=== PATIENT | female | born 1965 | race Hispanic/Latino ===

== ENCOUNTER 2018-09-03 13:12 | Emergency (ER) | payer SELFPAY ==
[2018-09-03] MEDS ORDERED: METOPROLOL TARTRATE 5 MG/5 ML INJ IV ONE (13:43)
[2018-09-03 14:01] LABS: Absolute Lymphocytes (CBC) 3.3 K/uL (0.7-4.9); Absolute Monocytes 0.4 K/uL (0.1-1.3); Absolute Neutrophil 3.5 K/uL (1.8-8.0); Basophils % 0.9 % (0-1.3); Eosinophils % 1.6 % (0-4.4); Lymphocytes % 44.6 % (15.3-44.8); MPV 9.7 fL (7.6-11.3); Monocytes % 5.9 % (3.3-12.3); RBC Red Blood Cell Count 5.13 M/uL (3.86-4.86)
[2018-09-03] MEDS ORDERED: FENTANYL CITR 100 MCG/2 ML ONE (14:03)
--- NOTE | 2018-09-03 14:03 | RAD REPORT ---
EXAM DESCRIPTION: RAD - Chest Single View - 09/03/2018 1:57 pm CLINICAL HISTORY: MALAISE Chest pain. COMPARISON: <Comparisons> FINDINGS: Portable technique limits examination quality. The lungs are grossly clear. The heart is normal in size. No displaced fractures. IMPRESSION: No acute intrathoracic process suspected.
[2018-09-03 14:09] LABS: Protime INR 1.01
[2018-09-03] MEDS ORDERED: METOPROLOL TAR 50 MG TAB ONE (14:17)
[2018-09-03] MEDS ORDERED: IPRATROPIUM BROM 0.5MG/2.5ML ONE (14:19)
[2018-09-03] MEDS ORDERED: ALBUTEROL 2.5 MG/3 ML NEB SOL ONE (14:19)
[2018-09-03 14:49] LABS: ALT/SGPT 45 U/L (12-78); AST/SGOT 35 U/L (15-37); Albumin 4.2 g/dL (3.4-5.0); Alkaline Phosphatase 66 U/L (45-117); BUN Blood Urea Nitrogen 15 mg/dL (7-18); Bicarbonate 28 mmol/L (21-32); Bilirubin Direct < 0.1 mg/dL (0-0.2); Bilirubin Total 0.2 mg/dL (0.2-1.0); Glucose Level 152 mg/dL (74-106); Magnesium 2.1 mg/dL (1.8-2.4); NT PRO-BNP 40 pg/mL (<125); Potassium 3.1 mmol/L (3.5-5.1); Protein, Total 8.1 g/dL (6.4-8.2); Sodium Level 141 mmol/L (136-145); Troponin (Emerg Dept Use Only) < 0.02 ng/mL (0.0-0.045)
--- NOTE | 2018-09-03 15:34 | RAD REPORT ---
EXAM DESCRIPTION: CT - Angio Aorta For Dissection - 09/03/2018 3:16 pm CLINICAL HISTORY: Chest pain radiating to the back. CHEST PAIN COMPARISON: Chest Single View dated 09/03/2018 TECHNIQUE: CT angiography of the aorta was performed with MIPs. All CT scans are performed using dose optimization technique as appropriate and may include automated exposure control or mA/KV adjustment according to patient size. FINDINGS: A left aortic arch is present with normal branching pattern of the great vessels.No acute aortic finding is seen such as aneurysm, penetrating ulcer or dissection. The celiac axis, SMA, GABY and renal arteries are widely patent. No evidence of pulmonary embolism. The lungs are clear. Cholecystectomy clips. The liver demonstrates no focal mass or biliary dilatation.The spleen, pancreas, adrenal glands and k idneys are within normal limits for arterial phase imaging. No bowel obstruction, free fluid or abscess.Normal appendix.No pathologic enlarged lymphadenopathy id entified.Moderate fat containing umbilical hernia. Diverticulosis is present involving the sigmoid co jesus without diverticulitis. No fracture or worrisome bone lesion seen. IMPRESSION: No acute aortic finding is demonstrated.
[2018-09-03] MEDS ORDERED: LORazepam 2 MG/ML VIAL ONE (15:36)
--- NOTE | 2018-09-03 16:02 | ER ---
Nurse's Notes [facility] Name: Sheri Galvez Age: 52 yrs Sex: Female : 1965 Arrival Date: 09/03/2018 Time: 13:13 Bed 6 Private MD: Diagnosis: Tachycardia, unspecified;Essential (primary) hypertension Presentation: 09/03 13:23 Presenting complaint: Patient states: L sided chest pain that began approx 15 min ADJUTANT GENERAL, ph radiates to L jaw, also reports SOB, and numbness o gustabo hands and feet. Transition of care: patient was not received from another setting of care. Onset of symptoms was September 03, 2018. Risk Assessment: Do you want to hurt yourself or someone else? Patient reports no desire to harm self or others. Initial Sepsis Screen: Does the patient meet any 2 criteria? No. Patient's initial sepsis screen is negative. Does the patient have a suspected source of infection? No. Patient's initial sepsis screen is negative. Care prior to arrival: None. 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 - Social history:: Smoking status: Patient/guardian denies using tobacco. - Ebola Screening: : No symptoms or risks identified at this time. Screenin:35 Abuse screen: Denies threats or abuse. Nutritional screening: No deficits noted. la1 Tuberculosis screening: No symptoms or risk factors identified. Fall Risk None identified. Assessment: 13:22 General: Appears distressed, Behavior is cooperative, anxious, crying. Pain: Complains hb of pain in chest upper back Pain currently is 10 out of 10 on a pain scale. Pain began suddenly, 1 hour ago. Neuro: Level of Consciousness is awake, alert, obeys commands, Oriented to person, place, time, situation. Cardiovascular: Heart tones S1 S2 present Capillary refill < 3 seconds Patient's skin is warm and dry. Rhythm is tachy 160s. Respiratory: Airway is patent Respiratory effort is even, unlabored, Respiratory pattern is regular, symmetrical, Breath sounds are clear bilaterally. GI: No signs and/or symptoms were reported involving the gastrointestinal system. : No signs and/or symptoms were reported regarding the genitourinary system. EENT: No signs and/or symptoms were reported regarding the EENT system. Derm: Skin is intact, is healthy with good turgor, Skin is pink, warm \T\ dry. Musculoskeletal: No signs and/or symptoms reported regarding the musculoskeletal system. 13:22 Reassessment: Dr. Cedeno at bedside. hb 13:46 Reassessment: Pt c/o chest pain that radiates to upper mid/upper back 01/25, HR hb 100-110, denies SOB. Dr. Cedeno notified, fentanyl administered as ordered. Family at bedside. 14:13 Reassessment: Pt c/o SOB, coughing, SPO2 100% on RA, says she is due to take her hb albuterol inhaler but does not have it with her. Dr. Cedeno notified, A\T\A neb administered as ordered. 15:00 Reassessment: Patient appears in no apparent distress at this time. Patient and/or hb family updated on plan of care and expected duration. Pain level reassessed. Patient is alert, oriented x 3, equal unlabored respirations, skin warm/dry/pink. 15:02 Reassessment: Pt to CT. hb 15:25 Reassessment: Pt returned from CT, c/o SOB and severe anxiety. Dr. Cedeno notified, hb Ativan administered as ordered. Family remains at bedside. 16:00 Reassessment: Patient appears in no apparent distress at this time. Patient denies pain hb at this time. Patient states feeling better. Patient states symptoms have improved. Vital Signs: 13:28 BP 147 / 124; Pulse 157; Resp 26; Pulse Ox 100% on R/A; Weight 61.23 kg; Height 5 ft. ph 11 in. (180.34 cm); Pain 10/10; 13:34 BP 127 / 106; Pulse 115; Resp 19; Pulse Ox 98% on R/A; la1 13:45 BP 139 / 99; Pulse 112; Resp 20; Pulse Ox 100% on R/A; Pain 10/10; hb 14:00 BP 135 / 102; Pulse 104; Resp 17; Pulse Ox 97% on R/A; Pain 8/10; hb 15:00 BP 121 / 90; Pulse 95; Resp 20; Pulse Ox 100% on R/A; hb 16:00 BP 115 / 87; Pulse 105; Resp 18; Pulse Ox 96% on R/A; Pain 5/10; hb 13:28 Body Mass Index 18.83 (61.23 kg, 180.34 cm) ph ED Course: 13:13 Patient arrived in ED. tw3 13:26 Triage completed. ph 13:28 Arm band placed on. ph 13:34 Patient has correct armband on for positive identification. Placed in gown. Bed in low la1 position. Call light in reach. Side rails up X 1. monitor and storage bin tender on. Pulse ox on. NIBP on. 13:34 Inserted saline lock: 18 gauge in left antecubital area, using aseptic technique. Blood la1 collected. 13:35 EKG done, by ED staff, reviewed by Vern Cedeno MD. Patient maintains SpO2 saturation la1 greater than 95% on room air. 13:36 Soha Sotelo, ROBERTO CARLOS is Primary Nurse. hb 13:36 Vern Cedeno MD is Attending Physician. gs 13:57 XRAY Chest (1 view) In Process Unspecified. EDMS 14:34 Radiology exam delayed due to lab results not completed at this time. (BUN/Creatinine). eh 14:[address] eh 15:14 CT completed. Patient tolerated procedure well. Patient moved back from CT. bq 15:16 CT Aorta for Dissection In Process Unspecified. EDMS 16:01 Eliud Juárez MD is Referral Physician. gs 16:25 No provider procedures requiring assistance completed. IV discontinued, intact, hb bleeding controlled, No redness/swelling at site. Pressure dressing applied. Administered Medications: 13:34 Drug: Lopressor 5 mg Route: IVP; Site: left antecubital; la1 13:55 Follow up: Response: No adverse reaction hb 13:55 Drug: fentaNYL (PF) 50 mcg Route: IVP; Site: left antecubital; hb 14:30 Follow up: Response: No adverse reaction hb 14:13 Drug: Metoprolol TARTRATE (Lopressor) 50 mg Route: PO; hb 15:00 Follow up: Response: No adverse reaction hb 14:13 Drug: Albuterol - atroVENT (3:1) (2.5 mg - 0.5 mg) 3 ml Route: Nebulizer; hb 15:15 Follow up: Response: No adverse reaction hb 15:25 Drug: Ativan 0.5 mg Route: IVP; Site: left antecubital; hb 16:00 Follow up: Response: No adverse reaction hb Outcome: 16:02 Discharge ordered by . fransisco 16:25 Discharged to home ambulatory, with family. hb 16:25 Condition: stable 16:25 Discharge instructions given to patient, Instructed on discharge instructions, follow up and referral plans. medication usage, Demonstrated understanding of instructions, follow-up care, medications. 16:27 Patient left the ED. hb Signatures: Dispatcher [employer] EDMS Gilmar Queen Betty bq Attema, Lee RN RN la1 Yani Lopes RN RN Soha Sotelo RN RN Bart, Ramona tw3 Vern Cedeno MD MD Corrections: (The following items were deleted from the chart) 13:56 12:45 BP 139 / 99; Pulse 112bpm; Resp 20bpm; Pulse Ox 100% RA; Pain 10/10; hb hb 13:59 13:31 Reassessment: Dr. Cedeno at bedside hb hb
--- NOTE | 2018-09-03 16:02 | EDPHYS ---
Physician Documentation [facility] Name: Sheri Galvez Age: 52 yrs Sex: Female : 1965 Arrival Date: 09/03/2018 Time: 13:13 Bed 6 Private MD: ED Physician Vern Cedeno HPI: 09/03 15:49 This 52 yrs old Female presents to ER via Ambulatory with complaints of High gs Blood Pressure. 15:49 Onset: The symptoms/episode began/occurred suddenly, just prior to arrival. Modifying gs factors: The symptoms are aggravated by activity. Associated signs and symptoms: Pertinent positives: chest pain, palpitations. Severity of symptoms: At its worst the blood pressure was moderate, in the emergency department the blood pressure is unchanged. The patient has experienced similar episodes in the past, a few times. 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 - Social history:: Smoking status: Patient/guardian denies using tobacco. - Ebola Screening: : No symptoms or risks identified at this time. ROS: 15:49 All other systems are negative. gs Exam: 15:49 Head/Face: Normocephalic, atraumatic. Eyes: Pupils equal round and reactive to light, gs extra-ocular motions intact. Lids and lashes normal. Conjunctiva and sclera are non-icteric and not injected. Cornea within normal limits. Periorbital areas with no swelling, redness, or edema. ENT: Nares patent. No nasal discharge, no septal abnormalities noted. Tympanic membranes are normal and external auditory canals are clear. Oropharynx with no redness, swelling, or masses, exudates, or evidence of obstruction, uvula midline. Mucous membranes moist. Neck: Trachea midline, no thyromegaly or masses palpated, and no cervical lymphadenopathy. Supple, full range of motion without nuchal rigidity, or vertebral point tenderness. No Meningismus. Chest/axilla: Normal chest wall appearance and motion. Nontender with no deformity. No lesions are appreciated. 15:49 Respiratory: Lungs have equal breath sounds bilaterally, clear to auscultation and percussion. No rales, rhonchi or wheezes noted. No increased work of breathing, no retractions or nasal flaring. Abdomen/GI: Soft, non-tender, with normal bowel sounds. No distension or tympany. No guarding or rebound. No evidence of tenderness throughout. Back: No spinal tenderness. No costovertebral tenderness. Full range of motion. Skin: Warm, dry with normal turgor. Normal color with no rashes, no lesions, and no evidence of cellulitis. MS/ Extremity: Pulses equal, no cyanosis. Neurovascular intact. Full, normal range of motion. Neuro: Awake and alert, GCS 15, oriented to person, place, time, and situation. Cranial nerves II-XII grossly intact. Motor strength 5/5 in all extremities. Sensory grossly intact. Cerebellar exam normal. Normal gait. 15:49 Constitutional: The patient appears alert, awake, in obvious distress, severely distressed. 15:49 Cardiovascular: Rate: tachycardic, Rhythm: regular, Pulses: no pulse deficits are appreciated, Heart sounds: normal, Edema: is not appreciated. 15:49 ECG was reviewed by the Attending Physician. Vital Signs: 13:28 BP 147 / 124; Pulse 157; Resp 26; Pulse Ox 100% on R/A; Weight 61.23 kg; Height 5 ft. ph 11 in. (180.34 cm); Pain 10/10; 13:34 BP 127 / 106; Pulse 115; Resp 19; Pulse Ox 98% on R/A; la1 13:45 BP 139 / 99; Pulse 112; Resp 20; Pulse Ox 100% on R/A; Pain 10/10; hb 14:00 BP 135 / 102; Pulse 104; Resp 17; Pulse Ox 97% on R/A; Pain 8/10; hb 15:00 BP 121 / 90; Pulse 95; Resp 20; Pulse Ox 100% on R/A; hb 16:00 BP 115 / 87; Pulse 105; Resp 18; Pulse Ox 96% on R/A; Pain 5/10; hb 13:28 Body Mass Index 18.83 (61.23 kg, 180.34 cm) ph MDM: 13:36 Patient medically screened. gs 15:49 Differential diagnosis: hypertensive crisis, arrythmia, svt, aflutter. Data reviewed: vital signs, nurses notes, lab test result(s), EKG, radiologic studies. Counseling: I had a detailed discussion with the patient and/or guardian regarding: the historical points, exam findings, and any diagnostic results supporting the discharge/admit diagnosis, lab results, radiology results, the need for outpatient follow up. Counseling: I had a detailed discussion with the patient and/or guardian regarding: stop phenteramine. Response to treatment: the patient's symptoms have resolved after treatment, and as a result, I will discharge patient. 09/03 13:37 Order name: Basic Metabolic Panel 09/03 13:37 Order name: CBC with Diff 09/03 13:37 Order name: LFT's; Complete Time: 15:19 09/03 13:37 Order name: Magnesium; Complete Time: 15: 09/03 13:37 Order name: NT PRO-BNP; Complete Time: 15: 09/03 13:37 Order name: PT-INR; Complete Time: 15: 09/03 13:37 Order name: Troponin (emerg Dept Use Only); Complete Time: 15:19 09/03 13:37 Order name: XRAY Chest (1 view); Complete Time: 15: 09/03 13:38 Order name: Basic Metabolic Panel; Complete Time: 15:19 EDMN 09/03 13:38 Order name: CBC with Automated Diff; Complete Time: 15:19 [facility] 09/03 14:03 Order name: CT Aorta for Dissection; Complete Time: 15:45 09/03 14:32 Order name: TSH; Complete Time: 16:04 09/03 15:19 Order name: Urine Drug Screen 09/03 16:00 Order name: Urine Dipstick--Ancillary (enter results) 09/03 13:37 Order name: EKG; Complete Time: 13:38 09/03 13:37 Order name: Cardiac monitoring; Complete Time: 13:38 09/03 13:37 Order name: EKG - Nurse/Tech; Complete Time: 13:38 09/03 13:37 Order name: IV Saline Lock; Complete Time: 13:39 09/03 13:37 Order name: Labs collected and sent; Complete Time: 13:43 09/03 13:37 Order name: O2 Per Protocol; Complete Time: 13:39 09/03 13:37 Order name: O2 Sat Monitoring; Complete Time: 13:39 09/03 13:37 Order name: EKG - Nurse/Tech; Complete Time: 13:55 gs EC:49 Rate is 145 beats/min. Rhythm is regular. HI interval is normal. QRS interval is gs normal. QT interval is normal. Clinical impression: stachy ns st changes, on repeat nl rate no st changes. Interpreted by me. Administered Medications: 13:34 Drug: Lopressor 5 mg Route: IVP; Site: left antecubital; la1 13:55 Follow up: Response: No adverse reaction hb 13:55 Drug: fentaNYL (PF) 50 mcg Route: IVP; Site: left antecubital; hb 14:30 Follow up: Response: No adverse reaction hb 14:13 Drug: Metoprolol TARTRATE (Lopressor) 50 mg Route: PO; hb 15:00 Follow up: Response: No adverse reaction hb 14:13 Drug: Albuterol - atroVENT (3:1) (2.5 mg - 0.5 mg) 3 ml Route: Nebulizer; hb 15:15 Follow up: Response: No adverse reaction hb 15:25 Drug: Ativan 0.5 mg Route: IVP; Site: left antecubital; hb 16:00 Follow up: Response: No adverse reaction hb Disposition: 09/03/18 16:02 Discharged to Home. Impression: Tachycardia, unspecified, Essential (primary) hypertension. - Condition is Stable. - Discharge Instructions: Holter Monitoring, Hypertension, Sinus Tachycardia. - Medication Reconciliation Form, Thank You Letter, Antibiotic Education, Prescription Opioid Use form. - Follow up: Eliud Juárez MD; When: 2 - 3 days; Reason: Re-evaluation by your physician. - Notes: STOP PHENTERAMINE Signatures: Dispatcher [employer] EDMS Kvng Shah RN RN la1 Yani Lopes RN RN Soha Sotelo RN RN Vern Cedeno MD MD Corrections: (The following items were deleted from the chart) 16:27 16:02 09/03/2018 16:02 Discharged to Home. Impression: Tachycardia, unspecified; hb Essential (primary) hypertension. Condition is Stable. Forms are Medication Reconciliation Form, Thank You Letter, Antibiotic Education, Prescription Opioid Use. Follow up: Eliud Juárez; When: 2 - 3 days; Reason: Re-evaluation by your physician. gs
[2018-09-03 16:27] LABS: Barbiturates NEGATIVE (NEGATIVE); Benzodiazepines NEGATIVE (NEGATIVE); Cocaine NEGATIVE (NEGATIVE); METHAMPHETAM NEGATIVE (NEGATIVE); Methadone NEGATIVE (NEGATIVE); Opiates NEGATIVE (NEGATIVE); Phencyclidine NEGATIVE (NEGATIVE); THC Cannibis POSITIVE (NEGATIVE)
[2018-09-03 17:14] LABS: Urine Blood NEGATIVE (NEG); Urine Glucose NEGATIVE (NEG); Urine Protein NEGATIVE (NEG); Urine Specific Gravity 1.015 (1.005-1.030); Urine pH 8.5 (5.0-7.0)
--- NOTE | 2018-09-04 12:53 | EKG ---
Test Date: 2018-09-03 Test Time: 13:43:13 Wreath Inspector: HB MEASUREMENT RESULTS: Intervals: Rate: 100 KS: 148 QRSD: 70 QT: 338 QTc: 436 [place]: P: 46 KS: 148 QRS: -6 T: 4 INTERPRETIVE STATEMENTS: Normal sinus rhythm normal ECG Compared to ECG 09/03/2018 13:26:54 Sinus tachycardia no longer present ST (T wave) deviation no longer present Electronically Signed On 09-04-18 12:51:58 CDT by Eliud Juárez
--- NOTE | 2018-09-04 12:54 | EKG ---
Test Date: 2018-09-03 Test Time: 13:26:54 Heating And Blending Supervisor: HB MEASUREMENT RESULTS: Intervals: Rate: 145 MD: 122 QRSD: 66 QT: 276 QTc: 428 [place]: P: 34 MD: 122 QRS: 20 T: 15 INTERPRETIVE STATEMENTS: Sinus tachycardia Nonspecific ST abnormality Abnormal ECG No previous ECG available for comparison Electronically Signed On 09-04-18 12:52:07 CDT by Eliud Juárez
== END 2018-09-03 16:27 | disposition home or self-care (01) ==
LOC: ER 13:12
DX: R00.0 Tachycardia, unspecified (principal); I10 Essential (primary) hypertension; Z79.82 Long term (current) use of aspirin; Z88.8 Allergy status to other drugs, medicaments and biological substances
CPT/HCPCS: 36415; 71045; 71275; 74175; 80048; 80076; 80307; 81003; 83735; 83880; 84443; 84484; 85025; 85610; 93005; 94640; 96374; 96375; 99291; 99292; J3010; Q9967

== ENCOUNTER 2018-09-09 13:46 | Emergency (ER) | payer SELFPAY ==
[2018-09-09] MEDS ORDERED: PROPRANOLOL HCL 40 MG TAB PO SCH (15:00)
--- NOTE | 2018-09-09 16:44 | EDPHYS ---
Physician Documentation [facility] Name: Sheri Galvez Age: 52 yrs Sex: Female : 1965 Arrival Date: 09/09/2018 Time: 13:48 Bed 7 Private MD: ED Physician Ehsan Johnson HPI: 09/09 14:16 This 52 yrs old Female presents to ER via Wheelchair with complaints of High snw Blood Pressure. 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 Onset: The symptoms/episode began/occurred suddenly, and became persistent. Associated signs and symptoms: Pertinent positives: chest pain. Severity of symptoms: At its worst the blood pressure was mild. The patient has experienced similar episodes in the past. The patient has been recently seen by a physician: The patient has been recently seen at the [facility] Emergency Department, for similar complaints told to stop phenteramine. 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 - Social history:: Smoking status: Patient/guardian denies using tobacco. - Ebola Screening: : No symptoms or risks identified at this time. ROS: 14:15 Constitutional: Negative for fever, chills, and weight loss, Eyes: Negative for injury, snw pain, redness, and discharge, ENT: Negative for injury, pain, and discharge, Neck: Negative for injury, pain, and swelling, Cardiovascular: Positive for chest tightness, palpitations, Negative for edema Respiratory: Negative for shortness of breath, cough, wheezing, and pleuritic chest pain, Abdomen/GI: Negative for abdominal pain, nausea, vomiting, diarrhea, and constipation, Back: Negative for injury and pain, : Negative for injury, bleeding, discharge, and swelling, MS/Extremity: Negative for injury and deformity, Skin: Negative for injury, rash, and discoloration, Neuro: Negative for headache, weakness, numbness, tingling, and seizure. Exam: 14:13 Constitutional: This is a well developed, well nourished patient who is awake, alert, snw and in no acute distress. Head/Face: Normocephalic, atraumatic. Eyes: Pupils equal round and reactive to light, extra-ocular motions intact. Lids and lashes normal. Conjunctiva and sclera are non-icteric and not injected. Cornea within normal limits. Periorbital areas with no swelling, redness, or edema. ENT: Nares patent. No nasal discharge, no septal abnormalities noted. Tympanic membranes are normal and external auditory canals are clear. Oropharynx with no redness, swelling, or masses, exudates, or evidence of obstruction, uvula midline. Mucous membranes moist. Neck: Trachea midline, no thyromegaly or masses palpated, and no cervical lymphadenopathy. Supple, full range of motion without nuchal rigidity, or vertebral point tenderness. No Meningismus. Chest/axilla: Normal chest wall appearance and motion. Nontender with no deformity. No lesions are appreciated. Cardiovascular: tachycardic rate and rhythm with a normal S1 and S2. No gallops, murmurs, or rubs. Normal PMI, no JVD. No pulse deficits. Respiratory: Lungs have equal breath sounds bilaterally, clear to auscultation and percussion. No rales, rhonchi or wheezes noted. No increased work of breathing, no retractions or nasal flaring. Abdomen/GI: Soft, non-tender, with normal bowel sounds. No distension or tympany. No guarding or rebound. No evidence of tenderness throughout. Back: No spinal tenderness. No costovertebral tenderness. Full range of motion. Skin: Warm, dry with normal turgor. Normal color with no rashes, no lesions, and no evidence of cellulitis. MS/ Extremity: Pulses equal, no cyanosis. Neurovascular intact. Full, normal range of motion. Neuro: Awake and alert, GCS 15, oriented to person, place, time, and situation. Cranial nerves II-XII grossly intact. Motor strength 5/5 in all extremities. Sensory grossly intact. Cerebellar exam normal. Normal gait. 14:13 Psych: Behavior/mood is anxious, Affect is animated, Oriented to person, place, time, pt with carpal spasms, rapid respirations. Vital Signs: 13:51 BP 113 / 87; Pulse 125; Resp 16; Temp 97.5; Pulse Ox 98% on R/A; Weight 61.23 kg; la1 Height 4 ft. 11 in. (149.86 cm); Pain 10/10; 14:24 BP 115 / 85; Pulse 89; Resp 18; Pulse Ox 97% on R/A; hj 15:02 BP 113 / 79; Pulse 95; Resp 18; Pulse Ox 100% on R/A; hj 16:00 BP 109 / 81 Supine; Pulse 70; Resp 18; Pulse Ox 98% on R/A; hj 16:00 BP 119 / 85 Sitting; Pulse 78; Resp 18; Pulse Ox 99% on R/A; hj 16:00 BP 115 / 88 Standing; Pulse 82; Resp 18; Pulse Ox 100% on R/A; hj 13:51 Body Mass Index 27.27 (61.23 kg, 149.86 cm) la1 MDM: 14:01 Patient medically screened. snw 09/09 14:04 Order name: EKG; Complete Time: 14:06 snw 09/09 14:04 Order name: EKG - Nurse/Tech; Complete Time: 14:04 snw 09/09 15:56 Order name: Orthostatics; Complete Time: 16:05 snw Administered Medications: 15:02 Drug: Propranolol 40 mg Route: PO; hj 16:51 Follow up: Response: No adverse reaction Disposition: 09/09/18 16:43 Discharged to Home. Impression: Palpitations. - Condition is Stable. - Discharge Instructions: Palpitations. - Prescriptions for Propranolol 20 mg Oral Tablet - take 1 tablet by ORAL route every 12 hours prn palpitations; 40 tablet. - Medication Reconciliation Form, Thank You Letter, Antibiotic Education, Prescription Opioid Use form. - Follow up: Emergency Department; When: As needed; Reason: Worsening of condition. Follow up: Private Physician; When: 2 - 3 days; Reason: Recheck today's complaints, Re-evaluation by your physician. Addendum: 09/12/2018 08:45 I agree with the assessment and plan of care. c ruiz Signatures: Ehsan Johnson MD MD cha Therrien, Shelly, NET MAKING SUPERVISOR-C NET MAKING SUPERVISOR-Csnw Kvng Shah RN RN la1 Erickson Vazquez RN RN hj Corrections: (The following items were deleted from the chart) 09/09 16:51 16:43 09/09/2018 16:43 Discharged to Home. Impression: Palpitations. Condition is hj Stable. Forms are Medication Reconciliation Form, Thank You Letter, Antibiotic Education, Prescription Opioid Use. Follow up: Emergency Department; When: As needed; Reason: Worsening of condition. Follow up: Private Physician; When: 2 - 3 days; Reason: Recheck today's complaints, Re-evaluation by your physician. snw
--- NOTE | 2018-09-09 16:44 | ER ---
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 Transition of care: patient was not received from another setting of care. Onset of symptoms. Risk Assessment: Do you want to hurt yourself or someone else? Patient reports no desire to harm self or others. Initial Sepsis Screen: Does the patient meet any 2 criteria? No. Patient's initial sepsis screen is negative. Does the patient have a suspected source of infection? No. Patient's initial sepsis screen is negative. Care prior to arrival: None. 13:50 Method Of Arrival: Wheelchair la1 13:50 Acuity: DISHA 2 la1 Triage Assessment: 13:55 General: Appears in no apparent distress. uncomfortable, Behavior is cooperative, hj appropriate for age, anxious. Pain: Denies pain. 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 - Social history:: Smoking status: Patient/guardian denies using tobacco. - Ebola Screening: : No symptoms or risks identified at this time. Screenin:55 Abuse screen: Denies threats or abuse. Denies injuries from another. Nutritional hj screening: No deficits noted. Tuberculosis screening: No symptoms or risk factors identified. Fall Risk None identified. Assessment: 13:50 General: Appears in no apparent distress. uncomfortable, Behavior is cooperative, hj appropriate for age, anxious. Pain: Denies pain. Neuro: Level of Consciousness is awake, alert, obeys commands, Oriented to person, place, time. Cardiovascular: Capillary refill < 3 seconds Patient's skin is warm and dry. Respiratory: Airway is patent Respiratory effort is even, unlabored, Respiratory pattern is regular, symmetrical. GI: No signs and/or symptoms were reported involving the gastrointestinal system. : No signs and/or symptoms were reported regarding the genitourinary system. EENT: No signs and/or symptoms were reported regarding the EENT system. Derm: Musculoskeletal: No signs and/or symptoms reported regarding the musculoskeletal system. 14:30 Reassessment: awaiting for propanolol PO from [facility];. hj 15:30 Reassessment: Patient and/or family updated on plan of care and expected duration. Pain hj level reassessed. Patient is alert, oriented x 3, equal unlabored respirations, skin warm/dry/pink. Patient states feeling better. Patient states symptoms have improved. 16:12 Reassessment: Patient and/or family updated on plan of care and expected duration. Pain hj level reassessed. Patient is alert, oriented x 3, equal unlabored respirations, skin warm/dry/pink. awaiting POC;. Vital Signs: 13:51 BP 113 / 87; Pulse 125; Resp 16; Temp 97.5; Pulse Ox 98% on R/A; Weight 61.23 kg; la1 Height 4 ft. 11 in. (149.86 cm); Pain 10/10; 14:24 BP 115 / 85; Pulse 89; Resp 18; Pulse Ox 97% on R/A; hj 15:02 BP 113 / 79; Pulse 95; Resp 18; Pulse Ox 100% on R/A; hj 16:00 BP 109 / 81 Supine; Pulse 70; Resp 18; Pulse Ox 98% on R/A; hj 16:00 BP 119 / 85 Sitting; Pulse 78; Resp 18; Pulse Ox 99% on R/A; hj 16:00 BP 115 / 88 Standing; Pulse 82; Resp 18; Pulse Ox 100% on R/A; hj 13:51 Body Mass Index 27.27 (61.23 kg, 149.86 cm) la1 ED Course: 13:48 Patient arrived in ED. rg4 13:50 Triage completed. la1 13:51 Arm band placed on left wrist. la1 13:55 Patient has correct armband on for positive identification. Bed in low position. Call light in reach. Side rails up X 1. 14:01 Javier, Veronica, IV TECHNICIAN-C [facility]. snw 14:01 Ehsan Johnson MD is Attending Physician. w 14:02 Erickson Vazquez, RN is Primary Nurse. hj 16:50 No provider procedures requiring assistance completed. Patient did not have IV access hj during this emergency room visit. Administered Medications: 15:02 Drug: Propranolol 40 mg Route: PO; hj 16:51 Follow up: Response: No adverse reaction hj Outcome: 16:43 Discharge ordered by MD. snw 16:50 Discharged to home ambulatory, with family. hj 16:50 Condition: stable 16:50 Discharge instructions given to patient, family, Instructed on discharge instructions, follow up and referral plans. medication usage, Demonstrated understanding of instructions, follow-up care, medications, Prescriptions given X 1. 16:51 Patient left the ED. Signatures: Veronica Herrera FNP-C FNP-Csnw Kvng Shah RN RN la1 Erickson Vazquez RN RN hj Garcia, Rubi rg4
--- NOTE | 2018-09-10 10:08 | EKG ---
Test Date: 2018-09-09 Test Time: 14:01:02 [place] Decorator: MEASUREMENT RESULTS: Intervals: Rate: 106 MI: 146 QRSD: 68 QT: 334 QTc: 443 Dudley: P: 58 MI: 146 QRS: 13 T: 17 INTERPRETIVE STATEMENTS: Sinus tachycardia Otherwise normal ECG Compared to ECG 09/03/2018 13:43:13 Sinus rhythm no longer present Electronically Signed On 09-10-18 10:05:53 CDT by Dany Landers
== END 2018-09-09 16:51 | disposition home or self-care (01) ==
LOC: ER 13:46
DX: R00.2 Palpitations (principal); Z79.82 Long term (current) use of aspirin
CPT/HCPCS: 93005; 99283

== ENCOUNTER 2019-05-01 08:48 | Emergency (ER) | payer OTHER, SELFPAY ==
--- OUTSIDE RECORDS SUMMARY | 2019-05-01 09:05 | XMS REPORT ---
:1965 [facility] Address [address] [place] [address] Dr. Newton. [address] [place] [id number] Care Team Providers Name Role Phone Unavailable Unavailable Unavailable Problems This patient has no known problems. Allergies, Adverse Reactions, Alerts This patient has no known allergies or adverse reactions. Medications This patient has no known medications.
[2019-05-01 09:54] LABS: Urine Blood NEGATIVE (NEG); Urine Glucose 2+ (NEG); Urine Protein NEGATIVE (NEG); Urine pH 6.5 (5.0-7.0)
[2019-05-01] MEDS ORDERED: ONDANSETRON 4 MG/2 ML VIAL ONE ×2 (11:01→14:28)
[2019-05-01] MEDS ORDERED: MORPHINE 4 MG/ML SYR ONE ×2 (11:01→13:50)
[2019-05-01] MEDS ORDERED: NA CHLORIDE 0.9% 1,000 ML ONE (11:01)
--- NOTE | 2019-05-01 11:48 | RAD REPORT ---
EXAM DESCRIPTION: RAD - Chest Single View - 05/01/2019 11:39 am CLINICAL HISTORY: Cough;Chest pain Chest pain. COMPARISON: Chest Single View dated 09/03/2018 FINDINGS: Portable technique limits examination quality. The lungs are grossly clear. The heart is normal in size. No displaced fractures. IMPRESSION: No acute intrathoracic process suspected.
[2019-05-01 11:52] LABS: Protime INR 1.03
[2019-05-01 11:59] LABS: Absolute Lymphocytes (CBC) 1.8 K/uL (0.7-4.9); Hematocrit 38.9 % (36.0-45.0); Lymphocytes % 16.1 % (15.3-44.8); MPV 9.4 fL (7.6-11.3); RBC Red Blood Cell Count 4.92 M/uL (3.86-4.86)
[2019-05-01 13:14] LABS: Blood Morphology Comment NOT SEEN (NOT SEEN); Platelet Estimate ADEQ
[2019-05-01 13:42] LABS: ALT/SGPT 73 U/L (12-78); AST/SGOT 59 U/L (15-37); Albumin 3.2 g/dL (3.4-5.0); Alkaline Phosphatase 96 U/L (45-117); BUN Blood Urea Nitrogen 8 mg/dL (7-18); Bicarbonate 27 mmol/L (21-32); Bilirubin Direct 0.2 mg/dL (0-0.2); Bilirubin Total 0.4 mg/dL (0.2-1.0); Glucose Level 179 mg/dL (74-106); Lipase 132 U/L (73-393); Magnesium 1.9 mg/dL (1.8-2.4); NT PRO-BNP 51 pg/mL (<125); Protein, Total 7.2 g/dL (6.4-8.2); Sodium Level 137 mmol/L (136-145); Troponin (Emerg Dept Use Only) < 0.02 ng/mL (0.0-0.045)
--- NOTE | 2019-05-01 14:19 | RAD REPORT ---
EXAM DESCRIPTION: CT - Angio Aorta For Dissection - 05/01/2019 2:00 pm CLINICAL HISTORY: Dissection;Rib Pain - Leftback pain, left-sided rib pain COMPARISON: CT dissection August 2018 TECHNIQUE: Dynamically enhanced 3 mm thick images of the chest, abdomen, and upper pelvis were obtai jairo during administration of approximately 150mL Isovue 370 IV contrast. Sagittal and coronal reconst ruction images were generated using MIP and reviewed. Exam utilizes a protocol to evaluate entire cou rse of the aorta. All CT scans are performed using dose optimization technique as appropriate and may include automated exposure control or mA/KV adjustment according to patient size. FINDINGS: Aorta is normal in diameter with no dissection or other acute aortic findings. Reconstruct ion images show no significant findings. Pulmonary arteries are normal as well. No cardiomegaly, pericardial thickening or pericardial effusio n. No mass or infiltrate in the lung parenchyma. No pleural thickening, pleural effusion or pneumothorax . No abnormal mediastinal or hilar mass or lymphadenopathy seen. No chest wall mass or abnormal axillar y lymphadenopathy. Celiac, SMA and renal arteries show no suspicious findings. Solid abdominal viscera and bowel show no acute findings. Patient has prominent sigmoid diverticulosis without diverticulitis. Cecum is low l jinny on the floor the pelvis. Retrocecal appendix is normal. Fatty infiltration is evident in the black er. No mass or abnormal lymphadenopathy. No free air, free fluid or inflammatory stranding. No urina ry bladder abnormality. A large periumbilical ventral hernia is present. This is 6 cm in diameter with a 5 centimeter neck. N o congestion or edema. No bowel involvement. Facet joint degenerative changes are present. No acute bone finding identified. Old posterior rib fra cture noted on the left. No acute rib fracture finding or pathologic rib process. IMPRESSION: Negative CT scan of the aorta. No other significant findings on chest, abdomen and upper pelvis examination.Nonacute findings detail ed in the body of the report.
[2019-05-01 14:42] LABS: HDL Cholesterol 43 mg/dL (40-60); LDL Cholesterol, Calculated ND (<130)
--- NOTE | 2019-05-01 14:48 | EDPHYS ---
Physician Documentation [facility] Name: Sheri Galvez Age: 53 yrs Sex: Female : 1965 Arrival Date: 05/01/2019 Time: 08:53 Bed 20 Private MD: ED Physician Ehsan Johnson HPI: 05/01 10:49 This 53 yrs old Female presents to ER via Ambulatory with complaints of Back rey Pain, Rib pain. 10:49 The patient presents with pain that is acute. The symptoms are located in the thoracic rey area and left mid back. Onset: The symptoms/episode began/occurred 2 day(s) ago. The pain radiates to the mid back area, left mid back and right mid back. Associated signs and symptoms: The patient has no apparent associated signs or symptoms. The problem was sustained from unknown cause. Severity of symptoms: At their worst the symptoms were mild, moderate, in the emergency department the symptoms are unchanged. The patient has not experienced similar symptoms in the past. 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 - Social history:: Smoking status: Patient/guardian denies using tobacco. - Ebola Screening: : Patient negative for fever greater than or equal to 101.5 degrees Fahrenheit, and additional compatible Ebola Virus Disease symptoms Patient denies exposure to infectious person Patient denies travel to an Ebola-affected area in the 21 days before illness onset No symptoms or risks identified at this time. - Family history:: not pertinent. ROS: 10:49 Constitutional: Negative for fever, chills, and weight loss, Eyes: Negative for injury, rey pain, redness, and discharge, ENT: Negative for injury, pain, and discharge, Neck: Negative for injury, pain, and swelling, Cardiovascular: Negative for chest pain, palpitations, and edema, Respiratory: Negative for shortness of breath, cough, wheezing, and pleuritic chest pain, Abdomen/GI: Negative for abdominal pain, nausea, vomiting, diarrhea, and constipation, : Negative for injury, bleeding, discharge, and swelling, MS/Extremity: Negative for injury and deformity, Skin: Negative for injury, rash, and discoloration, Neuro: Negative for headache, weakness, numbness, tingling, and seizure, Psych: Negative for depression, anxiety, suicide ideation, homicidal ideation, and hallucinations, Allergy/Immunology: Negative for hives, rash, and allergies, Endocrine: Negative for neck swelling, polydipsia, polyuria, polyphagia, and marked weight changes, Hematologic/Lymphatic: Negative for swollen nodes, abnormal bleeding, and unusual bruising. 10:49 Back: Positive for decreased range of motion, pain at rest, pain with movement, of the thoracic area, left mid back and right mid back. Exam: 10:49 Constitutional: This is a well developed, well nourished patient who is awake, alert, rey and in no acute distress. Head/Face: Normocephalic, atraumatic. Eyes: Pupils equal round and reactive to light, extra-ocular motions intact. Lids and lashes normal. Conjunctiva and sclera are non-icteric and not injected. Cornea within normal limits. Periorbital areas with no swelling, redness, or edema. ENT: Nares patent. No nasal discharge, no septal abnormalities noted. Tympanic membranes are normal and external auditory canals are clear. Oropharynx with no redness, swelling, or masses, exudates, or evidence of obstruction, uvula midline. Mucous membranes moist. Neck: Trachea midline, no thyromegaly or masses palpated, and no cervical lymphadenopathy. Supple, full range of motion without nuchal rigidity, or vertebral point tenderness. No Meningismus. Chest/axilla: Normal chest wall appearance and motion. Nontender with no deformity. No lesions are appreciated. Cardiovascular: Regular rate and rhythm with a normal S1 and S2. No gallops, murmurs, or rubs. Normal PMI, no JVD. No pulse deficits. Respiratory: Lungs have equal breath sounds bilaterally, clear to auscultation and percussion. No rales, rhonchi or wheezes noted. No increased work of breathing, no retractions or nasal flaring. Abdomen/GI: Soft, non-tender, with normal bowel sounds. No distension or tympany. No guarding or rebound. No evidence of tenderness throughout. Female : Normal external genitalia. Skin: Warm, dry with normal turgor. Normal color with no rashes, no lesions, and no evidence of cellulitis. MS/ Extremity: Pulses equal, no cyanosis. Neurovascular intact. Full, normal range of motion. Neuro: Awake and alert, GCS 15, oriented to person, place, time, and situation. Cranial nerves II-XII grossly intact. Motor strength 5/5 in all extremities. Sensory grossly intact. Cerebellar exam normal. Normal gait. Psych: Awake, alert, with orientation to person, place and time. Behavior, mood, and affect are within normal limits. 10:49 Back: pain, that is mild, that is moderate, ROM is painful, normal spinal alignment noted, CVA tenderness, is absent, muscle spasm, is appreciated in the left scapular area, right scapular area, left subscapular area, right subscapular area, left low back, left mid back, right mid back and right low back. Vital Signs: 09:03 BP 121 / 82; Pulse 115; Resp 18; Temp 98.5; Pulse Ox 98% on R/A; Weight 61.23 kg; iw Height 4 ft. 11 in. (149.86 cm); Pain 10/10; 11:13 BP 123 / 88; Pulse 95; Resp 15; Temp 98.9(O); Pulse Ox 100% on R/A; mh5 12:10 BP 116 / 86; Pulse 81; Resp 17; Pulse Ox 95% on R/A; mh5 13:25 BP 130 / 87; Pulse 82; Resp 16; Temp 97.9(O); Pulse Ox 97% on R/A; mh5 14:46 BP 115 / 84; Pulse 85; Resp 16; Pulse Ox 95% on R/A; mh5 15:40 BP 118 / 78; Pulse 84; Resp 18; Temp 97.9; Pulse Ox 99% on R/A; Pain 4/10; ph 09:03 Body Mass Index 27.27 (61.23 kg, 149.86 cm) iw MDM: 09:14 Patient medically screened. [facility] 10:52 Data reviewed: vital signs, nurses notes, lab test result(s), EKG, radiologic studies, [facility] CT scan, plain films. 05/01 09:41 Order name: Urine Dipstick--Ancillary (enter results); Complete Time: 10:41 bd 05/01 10:48 Order name: Basic Metabolic Panel; Complete Time: 13:44 rey 05/01 10:48 Order name: CBC with Diff; Complete Time: 13:44 rey 05/01 10:48 Order name: LFT's; Complete Time: 13:44 rey 05/01 10:48 Order name: Magnesium; Complete Time: 13:45 rey 05/01 10:48 Order name: NT PRO-BNP; Complete Time: 13:45 rey 05/01 10:48 Order name: PT-INR; Complete Time: 12:25 rey 05/01 10:48 Order name: Troponin (emerg Dept Use Only); Complete Time: 13:45 rey 05/01 10:48 Order name: XRAY Chest (1 view); Complete Time: 11:50 rey 05/01 10:48 Order name: Lipase; Complete Time: 13:45 rey 05/01 10:48 Order name: Urine Culture 05/01 12:00 Order name: Manual Differential; Complete Time: 13:45 EDMS 05/01 13:45 Order name: Lipid Profile 05/01 14:44 Order name: LDL, Direct EDMS 05/01 10:48 Order name: EKG; Complete Time: 10:49 rey 05/01 10:48 Order name: Cardiac monitoring; Complete Time: 11:46 rey 05/01 10:48 Order name: EKG - Nurse/Tech; Complete Time: 13:31 rey 05/01 10:48 Order name: IV Saline Lock; Complete Time: 11:46 rey 05/01 10:48 Order name: Labs collected and sent; Complete Time: 11:46 rey 05/01 10:48 Order name: O2 Per Protocol; Complete Time: 11:46 rey 05/01 10:48 Order name: O2 Sat Monitoring; Complete Time: 11:47 rey 05/01 10:48 Order name: CT Aorta for Dissection; Complete Time: 14:45 rey 05/01 12:02 Order name: Labs - recollect needed; Complete Time: 13:31 bd Administered Medications: 11:15 Drug: NS 0.9% 1000 ml Route: IV; Rate: 125 ml/hr; Site: right forearm; ph 18:26 Follow up: Response: No adverse reaction; IV Status: Completed infusion; IV Intake: ph 550ml 11:15 Drug: Zofran 4 mg Route: IVP; Site: right forearm; ph 13:37 Follow up: Response: No adverse reaction ph 11:18 Drug: morphine 4 mg Route: IVP; Site: right forearm; ph 11:35 Follow up: Response: No adverse reaction; Pain is decreased; RASS: Alert and Calm (0) ph 13:55 Drug: morphine 4 mg Route: IVP; Site: right antecubital; ph 15:30 Follow up: Response: No adverse reaction; Pain is decreased ph Disposition: 05/01/19 14:47 Discharged to Home. Impression: Low back pain, Strain of muscle and tendon of back wall of thorax, Hyperlipidemia, unspecified. - Condition is Stable. - Discharge Instructions: Back Pain, Adult, Musculoskeletal Pain, Back Pain, Adult, [id number]. - Prescriptions for Ibuprofen 600 mg Oral Tablet - take 1 tablet by ORAL route every 6 hours As needed take with food; 20 tablet. Tylenol- Codeine #3 300-30 mg Oral Tablet - take 2 tablets by ORAL route every 6 hours As needed; 26 tablet. - Medication Reconciliation Form, Thank You Letter, Antibiotic Education, Prescription Opioid Use form. - Follow up: Private Physician; When: 2 - 3 days; Reason: Recheck today's complaints, Continuance of care, Re-evaluation by your physician. - Problem is new. - Symptoms have improved. Signatures: Dispatcher [employer] EDMS Sharri Tran Corey, MD MD cha Williams, Irene, RN RN iw Yani Lopes RN RN ph Corrections: (The following items were deleted from the chart) 15:41 14:47 05/01/2019 14:47 Discharged to Home. Impression: Low back pain; Strain of muscle ph and tendon of back wall of thorax; Hyperlipidemia, unspecified. Condition is Stable. Discharge Instructions: Back Pain, Adult, Musculoskeletal Pain, Back Pain, Adult, [id number]. Prescriptions for Ibuprofen 600 mg Oral Tablet - take 1 tablet by ORAL route every 6 hours As needed take with food; 20 tablet, Tylenol-Codeine #3 300-30 mg Oral Tablet - take 2 tablets by ORAL route every 6 hours As needed; 26 tablet. and Forms are Medication Reconciliation Form, Thank You Letter, Antibiotic Education, Prescription Opioid Use. Follow up: Private Physician; When: 2 - 3 days; Reason: Recheck today's complaints, Continuance of care, Re-evaluation by your physician. Problem is new. Symptoms have improved. rey
--- NOTE | 2019-05-01 14:48 | ER ---
Nurse's Notes [facility] Name: Sheri Galvez Age: 53 yrs Sex: Female : 1965 Arrival Date: 05/01/2019 Time: 08:53 Bed 20 Private MD: Diagnosis: Low back pain;Strain of muscle and tendon of back wall of thorax;Hyperlipidemia, unspecified Presentation: 05/01 08:59 Presenting complaint: Patient states: pain in middle of back, has hx of osteoporosis, iw and radiates through to rib cage X 2 days, was dull and now it's harder. Transition of care: patient was not received from another setting of care. Onset of symptoms was April 28, 2019. Risk Assessment: Do you want to hurt yourself or someone else? Patient reports no desire to harm self or others. Initial Sepsis Screen: Does the patient meet any 2 criteria? No. Patient's initial sepsis screen is negative. Does the patient have a suspected source of infection? No. Patient's initial sepsis screen is negative. Care prior to arrival: None. 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 - Social history:: Smoking status: Patient/guardian denies using tobacco. - Ebola Screening: : Patient negative for fever greater than or equal to 101.5 degrees Fahrenheit, and additional compatible Ebola Virus Disease symptoms Patient denies exposure to infectious person Patient denies travel to an Ebola-affected area in the 21 days before illness onset No symptoms or risks identified at this time. - Family history:: not pertinent. Screenin:15 Abuse screen: Denies threats or abuse. Denies injuries from another. Nutritional iw screening: No deficits noted. Tuberculosis screening: No symptoms or risk factors identified. 13:36 Fall Risk None identified. ph Assessment: 09:15 General: Appears uncomfortable, Behavior is calm, appropriate for age. Pain: Complains iw of pain in back, chest and abdomen, throat. Neuro: Level of Consciousness is awake, alert, obeys commands, Oriented to person, place, time, situation, Moves all extremities. Full function. Cardiovascular: Patient's skin is warm and dry. Cardiovascular: Reports. Respiratory: Respiratory effort is even, unlabored, Respiratory pattern is regular. Derm: Skin is intact, is healthy with good turgor. Musculoskeletal: Reports pain in back. 10:30 Reassessment: Patient appears in no apparent distress at this time. Patient and/or ph family updated on plan of care and expected duration. Pain level reassessed. Patient is alert, oriented x 3, equal unlabored respirations, skin warm/dry/pink. 11:30 Reassessment: Patient appears in no apparent distress at this time. Patient and/or ph family updated on plan of care and expected duration. Pain level reassessed. Patient is alert, oriented x 3, equal unlabored respirations, skin warm/dry/pink. Re[ports that pain has dscreased after IV medication. Vital Signs: 09:03 BP 121 / 82; Pulse 115; Resp 18; Temp 98.5; Pulse Ox 98% on R/A; Weight 61.23 kg; iw Height 4 ft. 11 in. (149.86 cm); Pain 10/10; 11:13 BP 123 / 88; Pulse 95; Resp 15; Temp 98.9(O); Pulse Ox 100% on R/A; mh5 12:10 BP 116 / 86; Pulse 81; Resp 17; Pulse Ox 95% on R/A; mh5 13:25 BP 130 / 87; Pulse 82; Resp 16; Temp 97.9(O); Pulse Ox 97% on R/A; mh5 14:46 BP 115 / 84; Pulse 85; Resp 16; Pulse Ox 95% on R/A; mh5 15:40 BP 118 / 78; Pulse 84; Resp 18; Temp 97.9; Pulse Ox 99% on R/A; Pain 4/10; ph 09:03 Body Mass Index 27.27 (61.23 kg, 149.86 cm) iw ED Course: 08:53 Patient arrived in ED. mr 09:01 Triage completed. iw 09:14 Ehsan Johnson MD is Attending Physician. rey 09:15 Rebecca Gomez, RN is Primary Nurse. iw 11:05 Missed attempt(s): 20 gauge in right antecubital area. Bleeding controlled, band aid ph applied, catheter tip intact. 11:10 Inserted saline lock: 22 gauge in right forearm, using aseptic technique. ph 11:16 Patient has correct armband on for positive identification. Placed in gown. Bed in low mh5 position. Call light in reach. lining repairer on. Pulse ox on. NIBP on. 11:19 EKG done, by technology assistant. reviewed by Ehsan Johnson MD. at1 11:39 XRAY Chest (1 view) In Process Unspecified. EDMS 12:07 Radiology exam delayed due to lab results not completed at this time. (BUN/Creatinine). sj 13:36 Arm band placed on. ph 13:36 No provider procedures requiring assistance completed. ph 14:01 CT Aorta for Dissection In Process Unspecified. EDMS 15:39 Yani Lopes, RN is Primary Nurse. ph 15:40 IV discontinued, intact, bleeding controlled, No redness/swelling at site. Pressure ph dressing applied. Administered Medications: 11:15 Drug: NS 0.9% 1000 ml Route: IV; Rate: 125 ml/hr; Site: right forearm; ph 18:26 Follow up: Response: No adverse reaction; IV Status: Completed infusion; IV Intake: ph 550ml 11:15 Drug: Zofran 4 mg Route: IVP; Site: right forearm; ph 13:37 Follow up: Response: No adverse reaction ph 11:18 Drug: morphine 4 mg Route: IVP; Site: right forearm; ph 11:35 Follow up: Response: No adverse reaction; Pain is decreased; RASS: Alert and Calm (0) ph 13:55 Drug: morphine 4 mg Route: IVP; Site: right antecubital; ph 15:30 Follow up: Response: No adverse reaction; Pain is decreased ph Intake: 18:26 IV: 550ml; Total: 550ml. ph Outcome: 14:47 Discharge ordered by . rey 15:41 Patient left the ED. ph 15:41 Discharged to home ambulatory, with family. ph 15:41 Condition: good 15:41 Discharge instructions given to patient, Instructed on discharge instructions, follow up and referral plans. medication usage, Demonstrated understanding of instructions, follow-up care, medications, Prescriptions given X 2. Signatures: Dispatcher [employer] Ehsan Spaulding MD MD cha Rivera, mr Mark, Rebecca De La Rosa RN RN iw Gonzales, Amanda, dealer accounts investigator EKG Tat1 Yani Lopes RN RN Saundra Ryder 5 Corrections: (The following items were deleted from the chart) 13:35 11:30 Reassessment: Patient appears in no apparent distress at this time. Patient ph and/or family updated on plan of care and expected duration. Pain level reassessed. Patient is alert, oriented x 3, equal unlabored respirations, skin warm/dry/pink. ph
[2019-05-01 14:55] LABS: LDL, Direct 97 mg/dL (100-129)
[2019-05-01 16:06] VITALS: TEMP 97.9
[2019-05-01 16:08] VITALS: BP 115/84; O2SAT 95
--- NOTE | 2019-05-01 20:55 | EKG ---
Test Date: 2019-05-01 Test Time: 11:07:38 Corporate Securities Research Analyst: ZARI MEASUREMENT RESULTS: Intervals: Rate: 84 NJ: 170 QRSD: 72 QT: 326 QTc: 385 Manley: P: 55 NJ: 170 QRS: 30 T: 33 INTERPRETIVE STATEMENTS: Normal sinus rhythm with sinus arrhythmia Normal ECG Compared to ECG 09/09/2018 14:01:02 Sinus tachycardia no longer present Electronically Signed On 05-01-19 20:53:36 REHABILITATION SERVICES COUNSELOR by Dany Landers
== END 2019-05-01 15:41 | disposition home or self-care (01) ==
LOC: ER 08:48
DX: S29.012A Strain of muscle and tendon of back wall of thorax, initial encounter (principal); E78.5 Hyperlipidemia, unspecified; Z85.43 Personal history of malignant neoplasm of ovary; Z88.5 Allergy status to narcotic agent
CPT/HCPCS: 96361; 93005; 87088; 85025; 87086; 80048; 36415; 83721; 83735; 85610; 80061; 80076; 81003; 84484; 83690; 83880; 71275; 74175; 71045; 96375; 96374; 99284; Q9967; J7030; J2405 ×2

== ENCOUNTER 2021-04-25 19:16 | Emergency (ER) | payer OTHER ==
--- OUTSIDE RECORDS SUMMARY | 2021-04-25 19:19 | XMS REPORT | Continuity of Care Document ---
:1965 Author [facility] t Address [address] [place] [address] [address]. Newton[address] [place] [address] Care Team Providers Name Role Phone Shauna Atkinson Primary Care Physician Doctor Unassigned, [place] Attending Clinician Unavailable ADOLFO Attending Clinician Unavailable MARY Attending Clinician Unavailable Payers Payer Name Policy Type Policy Number Effective Date Expiration Date S ource Problems This patient has no known problems. Allergies, Adverse Reactions, Alerts Allergy Allergy Status Severity Reaction(s) Onset Inactive Treating Comm ents Source Name Type Date Date Clinician NO KNOWN Drug Active Univers ALLERGIE Class ity of [facility] Social History Social Habit Start Date Stop Date Quantity Comments Source Tobacco use and 2018-08-01 2018-08-01 Never used [facility] exposure 00:00:00 00:00:00 [facility] Sex Assigned At [birth year] [facility] 00:00:00 00:00:00 [facility] Smoking Status Start Date Stop Date Source Former smoker 2018-08-01 00:00:00 2018-08-01 00:00:00 [facility] Medications Ordered Filled Start Stop Current Ordering Indication Dosage Frequency Signature Comments Components Source Medication Medication Date Date Medication? Clinician (SIG) Name Name zolpidem 5 2018-0 Yes 5mg Take 5 mg Un caleb mg tablet 4-16 by mouth ity of 09:41: at bedtime [place] 46 as needed [facility] for [facility] Insomnia. Procedures Procedure Date / Time Performed Performing Clinician [facility] e REFERRAL- 2021-04-22 06:01:00 Doctor Unassigned, No [facility] [place] REQUEST/RESPONSE Name [facility] Branch Encounters Start End Encounter Admission Attending Care Care Encounter Source Date/Time Date/Time Type Type Clinicians Facility Department ID 2021-04-22 2021-04-22 Orders Doctor NESSA [id number] Univers 00:00:00 00:00:00 Only Unassigned, HORACE [id number] ity of [place] [facility] [id number] [facility] as [phone] [address] 2019-06-25 2019-06-25 Outpatient R ADOLFO [facility] [id number] Univers 13:00:00 13:00:00 NESSA [id number] pedro [facility] 2019-06-25 2019-06-25 Outpatient R ADOLFO [facility] [id number] [facility] 13:00:00 13:00:00 NESSA vasquez [facility] 2019-06-14 2019-06-14 Outpatient R MIKE [facility] [id number] Univers 09:30:00 09:30:00 pedro VILLAL[facility]ANDO [facility] Results This patient has no known results.
--- NOTE | 2021-04-25 19:59 | ER ---
Nurse's Notes [facility] Name: Sheri Galvez Age: 55 yrs Sex: Female : 1965 Arrival Date: 04/25/2021 Time: 19:17 Bed Waiting Private MD: Diagnosis: Presentation: 04/25 19:57 Note notified by registration that pt left the ED. bb ED Course: 19:17 Patient arrived in ED. as Administered Medications: No medications were administered Outcome: 19:59 Patient left the ED. bb Signatures: Danielle Brewer Brenda, RN RN bb
== END 2021-04-25 19:59 | disposition left against medical advice (07) ==
LOC: ER 19:16
DX: Z02.9 Encounter for administrative examinations, unspecified (principal)

== ENCOUNTER 2021-05-25 07:15 | Emergency (ER) | payer OTHER ==
--- OUTSIDE RECORDS SUMMARY | 2021-05-25 07:18 | XMS REPORT | Continuity of Care Document ---
:1965 Author Organization [facility] t Address [address] [place] [address] Dr. Newton. [address] [place] [address] Care Team Providers Name Role Phone Shauna Atkinson Primary Care Physician Doctor Unassigned, [place] Attending Clinician Unavailable ADOLFO Attending Clinician Unavailable MARY Attending Clinician Unavailable Payers Payer Name Policy Type Policy Number Effective Date Expiration Date S ource Problems This patient has no known problems. Allergies, Adverse Reactions, Alerts Allergy Allergy Status Severity Reaction(s) Onset Inactive Treating Comm ents Source Name Type Date Date Clinician NO KNOWN Drug Active Univers ALLERGIE Class ity of [facility] Social History Social Habit Start Date Stop Date Quantity Comments Source Tobacco use and 2018-08-01 2018-08-01 Never used [facility] exposure 00:00:00 00:00:00 [facility] Er Sex Assigned At [birth year] [facility] 00:00:00 00:00:00 [facility] Er Smoking Status Start Date Stop Date Source Former smoker 2018-08-01 00:00:00 2018-08-01 00:00:00 [facility] Medications Ordered Filled Start Stop Current Ordering Indication Dosage Frequency Signature Comments Components Source Medication Medication Date Date Medication? Clinician (SIG) Name Name zolpidem 5 2018-0 Yes 5mg Take 5 mg Un caleb mg tablet 4-16 by mouth ity of 09:41: at bedtime [place] 46 as needed Medical for Branch Insomnia. Procedures Procedure Date / Time Performed Performing Clinician [facility] e REFERRAL- 2021-04-22 06:01:00 Doctor Unassigned, No [facility] [place] REQUEST/RESPONSE Name [facility] Branch Encounters Start End Encounter Admission Attending Care Care Encounter Source Date/Time Date/Time Type Type Clinicians Facility Department ID 2021-04-22 2021-04-22 Orders Doctor NESSA [id number] Univers 00:00:00 00:00:00 Only Unassigned, HORACE [id number] ity of [place] [facility] [id number] [facility] as [phone] [address] 2019-06-25 2019-06-25 Outpatient R ADOLFO [facility] [id number] Univers 13:00:00 13:00:00 NESSA [id number] pedro [facility] 2019-06-25 2019-06-25 Outpatient R ADOLFO [facility] [id number] [facility] 13:00:00 13:00:00 NESSA vasquez [facility] 2019-06-14 2019-06-14 Outpatient R MIKE [facility] [id number] Univers 09:30:00 09:30:00 pedro VILLALPANDO [facility] Results This patient has no known results.
[2021-05-25 07:45] LABS: Urine Blood Trace-intact (Negative); Urine Glucose Trace (Negative); Urine Protein Negative (Negative); Urine Specific Gravity 1.015 (1.005-1.030)
[2021-05-25] MEDS ORDERED: MORPHINE 4 MG/ML SYR ONE (07:56)
[2021-05-25] MEDS ORDERED: ONDANSETRON 4 MG/2 ML VIAL ONE (07:57)
[2021-05-25 08:03] LABS: Hematocrit 44.4 % (36.0-45.0); Lymphocytes % 27.6 % (15.3-44.8); MPV 9.1 fL (7.6-11.3); RBC Red Blood Cell Count 5.45 M/uL (3.86-4.86)
[2021-05-25 08:04] LABS: Protime INR 1.08
[2021-05-25 08:31] LABS: ALT/SGPT 81 U/L (12-78); AST/SGOT 61 U/L (15-37); Albumin 4.1 g/dL (3.4-5.0); Alkaline Phosphatase 70 U/L (45-117); BUN Blood Urea Nitrogen 13 mg/dL (7-18); Bicarbonate 23 mmol/L (21-32); Bilirubin Direct < 0.1 mg/dL (0-0.2); Bilirubin Total 0.4 mg/dL (0.2-1.0); Glucose Level 195 mg/dL (74-106); Potassium 3.4 mmol/L (3.5-5.1); Protein, Total 8.6 g/dL (6.4-8.2); Sodium Level 135 mmol/L (136-145)
--- NOTE | 2021-05-25 09:07 | RAD REPORT ---
EXAM DESCRIPTION: CT - Chest Angio - 05/25/2021 8:51 am CLINICAL HISTORY: Chest pain. back pain COMPARISON: No comparisons TECHNIQUE: CT angiogram of the pulmonary arteries was performed with MIP. All CT scans are performed using dose optimization technique as appropriate and may include automated exposure control or mA/KV adjustment according to patient size. FINDINGS: No evidence of pulmonary thromboembolism. No acute aortic finding demonstrated. The lungs are clear. No significant pericardial or pleural fluid. No concerning bony finding. IMPRESSION: No evidence of pulmonary thromboembolism. No acute lung findings.
--- NOTE | 2021-05-25 10:01 | RAD REPORT ---
EXAM DESCRIPTION: RAD - Chest Single View - 05/25/2021 9:07 am CLINICAL HISTORY: back pain and HTN Chest pain. COMPARISON: Chest Single View dated 05/01/2019; Chest Single View dated 09/03/2018 FINDINGS: Portable technique limits examination quality. The lungs are grossly clear. The heart is normal in size. No displaced fractures. IMPRESSION: No acute intrathoracic process suspected.
[2021-05-25] MEDS ORDERED: MORPHINE 2 MG/ML SYR ONE (10:11)
[2021-05-25] MEDS ORDERED: TRAMADOL HCL 50 MG TAB ONE (10:11)
--- NOTE | 2021-05-25 10:18 | ER ---
Nurse's Notes [facility] Name: Sheri Galvez Age: 55 yrs Sex: Female : 1965 Arrival Date: 05/25/2021 Time: 07:19 Bed 8 Private MD: Diagnosis: Midthoracic back pain - chronic;Hypertension secondary to pain;Hyperglycemia, unspecified Presentation: 05/25 07:25 Chief complaint: Patient states: High blood pressure for the last few days, 150/110, jl7 reports chronic back pain that's been bad maybe because of the weather and reports that might be why. Coronavirus screen: At this time, the client does not indicate any symptoms associated with coronavirus-19. Ebola Screen: No symptoms or risks identified at this time. Initial Sepsis Screen: Does the patient meet any 2 criteria? No. Patient's initial sepsis screen is negative. Does the patient have a suspected source of infection? No. Patient's initial sepsis screen is negative. Risk Assessment: Do you want to hurt yourself or someone else? Patient reports no desire to harm self or others. Onset of symptoms is unknown. 07:25 Method Of Arrival: Ambulatory 7 07:25 Acuity: DISHA 3 jl7 Triage Assessment: 07:27 General: Appears in no apparent distress. uncomfortable, Behavior is calm, cooperative, jl7 appropriate for age. Pain: Complains of pain in back Pain currently is 10 out of 10 on a pain scale. [place]ING [place]: 07:27 LMP N/A - Post-menopause jl7 Historical: - Allergies: 07:27 Prozac; jl7 - Home Meds: 07:27 Zolpidem Tartrate Oral [Active]; diclofenac sodium Topical [Active]; fenofibrate 160 mg jl7 oral tab [Active]; - PMHx: 07:27 Asthma; Fibromyalgia; Osteoporosis; ovarian cancer; RA; Chronic back pain; Diabetes jl7 mellitus; - PSHx: 07:30 Total abdominal hysterectomy; Cholecystectomy; jl7 - Immunization history:: Client reports having NOT received the Covid vaccine. - Social history:: Smoking status: Patient/guardian denies using tobacco, the patient reports quitting approximately 15 years ago. Screenin:01 Abuse screen: Denies threats or abuse. Denies injuries from another. Nutritional jg9 screening: No deficits noted. Tuberculosis screening: No symptoms or risk factors identified. Fall Risk None identified. Assessment: 07:45 Pain: Complains of pain in posterior chest Pain currently is 10 out of 10 on a pain jg9 scale. Neuro: Reports headache. 08:01 General: Appears uncomfortable, Behavior is crying. jg9 08:17 Reassessment: Patient reports improvement in pain Patient states feeling better. jg9 Vital Signs: 07:25 BP 153 / 104; Pulse 111; Resp 17; Temp 98.1; Pulse Ox 100% ; Weight 63.5 kg; Height 4 jl7 ft. 11 in. (149.86 cm); Pain 10/10; 08:00 BP 142 / 97; Pulse 100; Resp 17 S; Pulse Ox 98% on R/A; jg9 08:30 BP 127 / 102; Pulse 94; Resp 17 S; Pulse Ox 98% on R/A; jg9 10:00 BP 139 / 98; Pulse 94; Resp 16 S; Pulse Ox 99% on R/A; jg9 07:25 Body Mass Index 28.28 (63.50 kg, 149.86 cm) jl7 ED Course: 07:19 Patient arrived in ED. ds1 07:22 Skyler Domínguez MD is Attending Physician. kdr 07:27 Triage completed. jl7 07:27 Arm band placed on right wrist. jl7 07:33 Halina Santos, RN is Primary Nurse. jg9 07:45 Patient requests pain medication. ED physician to see patient. Pt visited by. jg9 07:50 Inserted saline lock: 22 gauge in left forearm, using aseptic technique. Blood jg9 collected. 08:02 Patient has correct armband on for positive identification. Bed in low position. Call jg9 light in reach. Side rails up X 1. 08:18 No apparent distress. Resting quietly. Pt visited by daughter. jg9 08:52 CT Chest Angio In Process Unspecified. EDMS 09:08 XRAY Chest (1 view) In Process Unspecified. EDMS 10:20 No provider procedures requiring assistance completed. jg9 10:20 IV discontinued. jg9 Administered Medications: 07:55 Drug: morphine 4 mg {Note: RASS-0.} Route: IVP; Site: left forearm; jg9 09:04 Follow up: Response: No adverse reaction; Pain is decreased jg9 07:55 Drug: Zofran (Ondansetron) 4 mg Route: IVP; Site: left forearm; jg9 09:04 Follow up: Response: No adverse reaction; Nausea is decreased jg9 10:10 Drug: morphine 2 mg {Note: RASS-0.} Route: IVP; Site: left forearm; jg9 10:14 Follow up: Response: No adverse reaction jg9 10:19 Follow up: Response: Pain is decreased jg9 10:12 Drug: traMADol 50 mg {Note: RASS-0.} Route: PO; jg9 10:20 Follow up: Response: No adverse reaction; Medication administered at discharge. jg9 10:12 CANCELLED (Duplicate Order): morphine 2 mg IVP once; RASS on ADMIN: Combtv4, Very jg9 Agttd3, Agttd2, Rstlss1, AlertClm0, Drwsy-1, Lt Sdtn-2, Mod Sdtn-3, Dp Sdtn-4, UnArsble-5 10:12 CANCELLED (Duplicate Order): traMADol 50 mg PO once; RASS on ADMIN: Combtv4, Very jg9 Agttd3, Agttd2, Rstlss1, AlertClm0, Drwsy-1, Lt Sdtn-2, Mod Sdtn-3, Dp Sdtn-4, UnArsble-5 10:13 CANCELLED (Duplicate Order): morphine 2 mg IVP once; (PAIN>8) RASS on ADMN: Combtv4, jg9 Very Agttd3, Agttd2, Rstlss1, AlertClm0, Drwsy-1, LtSdtn-2, ModSdtn-3, DpSdtn-4, UnArsble-5 x2 Outcome: 10:18 Discharge ordered by . angela 10:20 Discharged to home ambulatory. jg9 10:20 Condition: stable 10:20 Discharge instructions given to patient, Instructed on discharge instructions, follow up and referral plans. Demonstrated understanding of instructions, follow-up care, Prescriptions given X 1. 10:24 Patient left the ED. jg9 Signatures: Dispatcher [employer] EDMS Skyler Domínguez MD MD kdr [place], Demi ds1 Rafa Onofre RN RN jl7 Halina Santos RN RN jg9 Corrections: (The following items were deleted from the chart) 10:13 10:10 morphine 2 mg IVP in left antecubital jg9 jg9
--- NOTE | 2021-05-25 10:19 | EDPHYS ---
Physician Documentation [facility] Name: Sheri Galvez Age: 55 yrs Sex: Female : 1965 Arrival Date: 05/25/2021 Time: 07:19 Bed 8 Private MD: ED Physician Skyler Domínguez HPI: 05/25 08:22 This 55 yrs old Female presents to ER via Ambulatory with complaints of Back kdr pain and high Blood Pressure. 08:22 Patient has had chronic back pain for years. She is had multiple injections in her back kdr and spine and other joints for her chronic pain. Over the last 2 days the patient had worsening pain to her upper back. She is also had high blood pressure. Her physician has diagnosed her with diabetes but as yet she has not been on any medication for control. Onset: The symptoms/episode began/occurred at an unknown time. Longstanding but worsening. Severity of symptoms: At their worst the symptoms were mild moderate just prior to arrival, in the emergency department the symptoms are unchanged. The patient has experienced similar episodes in the past, chronically, but today's symptoms are worse, more painful. The patient has not recently seen a physician. 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 - Social history:: Smoking status: Patient/guardian denies using tobacco, the patient reports quitting approximately 15 years ago. ROS: 08:22 Constitutional: Negative for fever, chills, and weight loss, Eyes: Negative for injury, kdr pain, redness, and discharge, ENT: Negative for injury, pain, and discharge, Neck: Negative for injury, pain, and swelling, Cardiovascular: Negative for chest pain, palpitations, and edema, Respiratory: Negative for shortness of breath, cough, wheezing, and pleuritic chest pain, Abdomen/GI: Negative for abdominal pain, nausea, vomiting, diarrhea, and constipation, : Negative for injury, bleeding, discharge, and swelling, MS/Extremity: Negative for injury and deformity, Skin: Negative for injury, rash, and discoloration, Neuro: Negative for headache, weakness, numbness, tingling, and seizure activity. Psych: Negative for depression, anxiety, suicide ideation, homicidal ideation, and hallucinations, Allergy/Immunology: Negative for hives, rash, and allergies, Endocrine: Negative for neck swelling, polydipsia, polyuria, polyphagia, and marked weight changes, Hematologic/Lymphatic: Negative for swollen nodes, abnormal bleeding, and unusual bruising. 08:22 Back: Positive for pain at rest, pain with movement, of the thoracic area, Negative for injury or acute deformity, decreased range of motion. Exam: 08:00 ECG was reviewed by the Attending Physician. kdr 08:22 Constitutional: This is a well developed, well nourished patient who is awake, alert, kdr and in no acute distress. Head/Face: Normocephalic, atraumatic. Eyes: Pupils equal round and reactive to light, extra-ocular motions intact. Lids and lashes normal. Conjunctiva and sclera are non-icteric and not injected. Cornea within normal limits. Periorbital areas with no swelling, redness, or edema. Neck: Trachea midline, no thyromegaly or masses palpated, and no cervical lymphadenopathy. Supple, full range of motion without nuchal rigidity, or vertebral point tenderness. No Meningismus. Chest/axilla: Normal chest wall appearance and motion. Nontender with no deformity. No lesions are appreciated. Cardiovascular: Regular rate and rhythm with a normal S1 and S2. No gallops, murmurs, or rubs. Normal PMI, no JVD. No pulse deficits. Respiratory: Lungs have equal breath sounds bilaterally, clear to auscultation and percussion. No rales, rhonchi or wheezes noted. No increased work of breathing, no retractions or nasal flaring. Abdomen/GI: Soft, non-tender, with normal bowel sounds. No distension or tympany. No guarding or rebound. No evidence of tenderness throughout. Skin: Warm, dry with normal turgor. Normal color with no rashes, no lesions, and no evidence of cellulitis. MS/ Extremity: Pulses equal, no cyanosis. Neurovascular intact. Full, normal range of motion. Neuro: Awake and alert, GCS 15, oriented to person, place, time, and situation. Cranial nerves II-XII grossly intact. Motor strength 5/5 in all extremities. Sensory grossly intact. Cerebellar exam normal. Normal gait. Psych: Awake, alert, with orientation to person, place and time. Behavior, mood, and affect are within normal limits. 08:22 Back: pain, that is moderate, of the thoracic area, normal spinal alignment noted, CVA tenderness, is absent, vertebral tenderness, is appreciated at T5, T6, T7, T8 and T9. Vital Signs: 07:25 BP 153 / 104; Pulse 111; Resp 17; Temp 98.1; Pulse Ox 100% ; Weight 63.5 kg; Height 4 jl7 ft. 11 in. (149.86 cm); Pain 10/10; 08:00 BP 142 / 97; Pulse 100; Resp 17 S; Pulse Ox 98% on R/A; jg9 08:30 BP 127 / 102; Pulse 94; Resp 17 S; Pulse Ox 98% on R/A; jg9 10:00 BP 139 / 98; Pulse 94; Resp 16 S; Pulse Ox 99% on R/A; jg9 07:25 Body Mass Index 28.28 (63.50 kg, 149.86 cm) jl7 MDM: 08:22 Data reviewed: vital signs, nurses notes, lab test result(s), radiologic studies. kdr Counseling: I had a detailed discussion with the patient and/or guardian regarding: the historical points, exam findings, and any diagnostic results supporting the discharge/admit diagnosis, lab results, radiology results. 10:18 Patient medically screened. kdr 10:19 ED course: Patient was much improved and happy with the care provided and the plan for kdr discharge and follow-up. Her blood pressure came down once her pain was improved. She did not have an anion gap with her hyperglycemia. Patient was otherwise stable and happy with the plan for discharge and follow-up. 05/25 07:44 Order name: Basic Metabolic Panel kdr 05/25 07:44 Order name: CBC with Diff; Complete Time: 08:52 kdr 05/25 07:44 Order name: LFT's kdr 05/25 07:44 Order name: Magnesium kdr 05/25 07:44 Order name: NT PRO-BNP kdr 05/25 07:44 Order name: PT-INR; Complete Time: 08:52 kdr 05/25 07:44 Order name: Troponin HS kdr 05/25 07:44 Order name: XRAY Chest (1 view) kdr 05/25 07:44 Order name: CT Chest Angio; Complete Time: 09:20 kdr 05/25 07:46 Order name: Urine Dipstick-Ancillary; Complete Time: 08:52 EDMS 05/25 07:53 Order name: Glucose, Ancillary Testing EDMS 05/25 07:44 Order name: EKG; Complete Time: 07:45 kdr 05/25 07:44 Order name: Cardiac monitoring; Complete Time: 08:00 kdr 05/25 07:44 Order name: EKG - Nurse/Tech; Complete Time: 08:00 kdr 05/25 07:44 Order name: IV Saline Lock; Complete Time: 08:00 kdr 05/25 07:44 Order name: Labs collected and sent; Complete Time: 08:00 kdr 05/25 07:44 Order name: O2 Sat Monitoring; Complete Time: 08:00 kdr EC:00 Rate is 107 beats/min. Rhythm is regular, Sinus tachycardia with No ectopy. QRS [place] is kdr Normal. [place] interval is normal. QRS interval is normal. QT interval is normal. Clinical impression: NSR w/ Non-specific ST/T Changes and Sinus tachycardia. Administered Medications: 07:55 Drug: morphine 4 mg {Note: RASS-0.} Route: IVP; Site: left forearm; jg9 09:04 Follow up: Response: No adverse reaction; Pain is decreased jg9 07:55 Drug: Zofran (Ondansetron) 4 mg Route: IVP; Site: left forearm; jg9 09:04 Follow up: Response: No adverse reaction; Nausea is decreased jg9 10:10 Drug: morphine 2 mg {Note: RASS-0.} Route: IVP; Site: left forearm; jg9 10:14 Follow up: Response: No adverse reaction jg9 10:19 Follow up: Response: Pain is decreased jg9 10:12 Drug: traMADol 50 mg {Note: RASS-0.} Route: PO; jg9 10:20 Follow up: Response: No adverse reaction; Medication administered at discharge. jg9 10:12 CANCELLED (Duplicate Order): morphine 2 mg IVP once; RASS on ADMIN: Combtv4, Very jg9 Agttd3, Agttd2, Rstlss1, AlertClm0, Drwsy-1, Lt Sdtn-2, Mod Sdtn-3, Dp Sdtn-4, UnArsble-5 10:12 CANCELLED (Duplicate Order): traMADol 50 mg PO once; RASS on ADMIN: Combtv4, Very jg9 Agttd3, Agttd2, Rstlss1, AlertClm0, Drwsy-1, Lt Sdtn-2, Mod Sdtn-3, Dp Sdtn-4, UnArsble-5 10:13 CANCELLED (Duplicate Order): morphine 2 mg IVP once; (PAIN>8) RASS on ADMN: Combtv4, jg9 Very Agttd3, Agttd2, Rstlss1, AlertClm0, Drwsy-1, LtSdtn-2, ModSdtn-3, DpSdtn-4, UnArsble-5 x2 Disposition Summary: 05/25/21 10:18 Discharge Ordered Location: Home kdr Problem: an ongoing problem kdr Symptoms: have improved kdr Condition: Stable kdr Diagnosis - Midthoracic back pain - chronic kdr - Hypertension secondary to pain kdr - Hyperglycemia, unspecified kdr Followup: kdr - With: Private Physician - When: 2 - 3 days - Reason: If symptoms return, Further diagnostic work-up, Recheck today's complaints, Continuance of care, Re-evaluation by your physician Discharge Instructions: - Discharge Summary Sheet kdr - Chronic Pain, Adult kdr - Chronic Back Pain, [id number] kdr - Blood Glucose Monitoring, Adult kdr - Hyperglycemia, [id number] kdr Forms: - Medication Reconciliation Form kdr - Thank You Letter kdr - Prescription Opioid Use kdr Prescriptions: - Tramadol 50 mg Oral Tablet - take 1 tablet by ORAL route every 8 hours as needed; 12 tablet; Refills: 0, kdr Product Selection Permitted Signatures: Dispatcher [employer] EDMS Skyler Domínguez MD MD kdr Rafa Onofre RN RN jl7 Halina Santos RN RN jg9 Corrections: (The following items were deleted from the chart) 10:12 10:08 morphine 2 mg IVP once; RASS on ADMIN: Combtv4, Very Agttd3, Agttd2, Rstlss1, jg9 AlertClm0, Drwsy-1, Lt Sdtn-2, Mod Sdtn-3, Dp Sdtn-4, UnArsble-5 ordered. kdr 10:12 10:08 traMADol 50 mg PO once; RASS on ADMIN: Combtv4, Very Agttd3, Agttd2, Rstlss1, jg9 AlertClm0, Drwsy-1, Lt Sdtn-2, Mod Sdtn-3, Dp Sdtn-4, UnArsble-5 ordered. kdr 10:13 10:07 morphine 2 mg IVP once; (PAIN>8) RASS on ADMN: Combtv4, Very Agttd3, Agttd2, jg9 Rstlss1, AlertClm0, Drwsy-1, LtSdtn-2, ModSdtn-3, DpSdtn-4, UnArsble-5 x2 ordered. jg9 10:13 10:12 morphine 2 mg IVP once; (PAIN>8) RASS on ADMN: Combtv4, Very Agttd3, Agttd2, jg9 Rstlss1, AlertClm0, Drwsy-1, LtSdtn-2, ModSdtn-3, DpSdtn-4, UnArsble-5 x2 given. jg9 10:13 10:13 morphine 2 mg IVP once; (PAIN>8) RASS on ADMN: Combtv4, Very Agttd3, Agttd2, jg9 Rstlss1, AlertClm0, Drwsy-1, LtSdtn-2, ModSdtn-3, DpSdtn-4, UnArsble-5 x2 ordered. j9
[2021-05-25 10:36] VITALS: TEMP 98.1
[2021-05-25 10:40] VITALS: BP 139/98; O2SAT 99
[2021-05-25 14:04] LABS: NT PRO-BNP 32
[2021-05-25 16:10] LABS: Magnesium 1.7
--- NOTE | 2021-05-26 09:02 | EKG ---
Test Date: 2021-05-25 Test Time: 08:00:08 Manufacturing Supervisor: NAOMY MEASUREMENT RESULTS: Intervals: Rate: 107 [place]: 154 QRSD: 72 QT: 344 QTc: 459 [place]: P: 57 [place]: 154 QRS: 16 T: 20 INTERPRETIVE STATEMENTS: Sinus tachycardia RSR' or QR pattern in V1 suggests right ventricular conduction delay Borderline ECG Compared to ECG 05/01/2019 11:07:38 RSR' in V1 or V2 now present Sinus rhythm no longer present Sinus arrhythmia no longer present Electronically Signed On 05-26-21 08:58:01 CONSTRUCTION FLAGGER by Dany Landers
== END 2021-05-25 10:24 | disposition home or self-care (01) ==
LOC: ER 07:15
DX: I15.8 Other secondary hypertension (principal); E11.65 Type 2 diabetes mellitus with hyperglycemia; Z88.8 Allergy status to other drugs, medicaments and biological substances
CPT/HCPCS: 93005; 85025; 80048; 36415; 83735; 85610; 82947; 80076; 81003; 84484; 83880; 71275; 71045; 96375; 96374; 99284; Q9967; J2270; J2405